=== PATIENT | male | born 1985 | race Caucasian/White ===

== ENCOUNTER 2019-03-13 19:45 | Emergency (ER) | payer SELFPAY ==
[2019-03-13] MEDS ORDERED: HYDROmorphone 1 MG/ML CARPUJECT IVP STA (20:40)
[2019-03-13] MEDS ORDERED: ONDANSETRON 4 MG/2 ML VIAL IVP STA (20:40)
[2019-03-13 20:42] LABS: BASOPHILS % (AUTO) 0.2 %; HGB - HEMOGLOBIN 15.9 g/dL (14.0-18.0); LYMPHOCYTES # (AUTO) 0.6 10^3/uL (1.5-3.5); LYMPHOCYTES % (AUTO) 5.4 %; MEAN CORPUSCULAR HEMOGLOBIN 32.1 pg (27.0-31.0); MEAN CORPUSCULAR HGB CONC 34.4 g/dL (32.0-36.0); MEAN CORPUSCULAR VOLUME 93.1 fL (80.0-94.0); MEAN PLATELET VOLUME 9.2 fL (7.4-11.4); MONOCYTES # (AUTO) 0.2 10^3/uL (0.0-1.0); MONOCYTES % (AUTO) 1.8 %; NEUTROPHILS # (AUTO) 10.4 10^3/uL (1.5-6.6); NEUTROPHILS % (AUTO) 92.3 %; PLT - PLATELET COUNT 240 10^3/uL (130-450); RED BLOOD COUNT 4.96 10^6/uL (4.70-6.10); RED CELL DISTRIBUTION WIDTH 12.1 % (12.0-15.0); WHITE BLOOD COUNT 11.3 x10^3/uL (4.8-10.8)
--- NOTE | 2019-03-13 20:43 | ED Physician Documentation ---
PD HPI ABD PAIN - Stated complaint Stated Complaint: SOA - Chief complaint Chief Complaint: Resp - History obtained from History obtained from: Patient - History of Present Illness Timing - onset: Enter time (0500), Today Timing - duration: Hours Timing - details: Abrupt onset, Still present Quality: Sharp, Pain Location: All over / everywhere, LUQ Improved by: Laying still Worsened by: Moving, Breathing, Position, Palpation Associated symptoms: Nausea, Vomiting Similar symptoms before: Diagnosis (The patient has had spontaneous pneumothorax previously) Recently seen: Not recently seen - Additional information Additional information: 33-year-old male with history of HIV has developed acute vomiting this morning at approximately 5 AM he spent most of the day in the tub and he has persistence of vomiting is now developed acute left upper quadrant abdominal pain worse with inspiration. He has had similar symptoms once with a pneumothorax and he is extremely uncomfortable. He does state that he does use cannabis but not to any excess. He does state that he has had episodes of vomiting for the past several weeks. He is on HIV medicine for the past several months. 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, No motor deficit, No sensory deficit, Normal speech Eye Opening: Spontaneous Motor: Obeys Commands Verbal: Oriented GCS Score: 15 - Psych Psych: Normal mood, Other (flat affect of pain ) Results - Vitals Vitals: Vital Signs - 24 hr 03/13/19 03/13/19 03/13/19 19:51 21:27 23:52 Temperature 36.9 C Heart Rate 81 53 L 87 Respiratory 24 14 14 Rate Blood Pressure 125/98 H 130/70 116/78 O2 Saturation 98 95 95 Oxygen O2 Source Room air - EKG (time done) 2006 Rate: Rate (enter#) (54) Rhythm: NSR Ischemia: Normal ST segments Compare to prior EKG: Old EKG unavailable Computer interpretation: Agree with computer - Labs Labs: Laboratory Tests 03/13/19 03/13/19 20:39 20:39 WBC 11.3 H RBC 4.96 Hgb 15.9 Hct 46.2 MCV 93.1 MCH 32.1 H MCHC 34.4 RDW 12.1 Plt Count 240 MPV 9.2 Neut # (Auto) 10.4 H Lymph # (Auto) 0.6 L [place] # (Auto) 0.2 Eos # (Auto) 0.0 Baso # (Auto) 0.0 Absolute Nucleated RBC 0.00 Nucleated RBC % 0.0 Sodium 136 Potassium 3.9 Chloride 100 L Carbon Dioxide 24 Anion Gap 12.0 BUN 15 Creatinine 1.1 Estimated GFR (MDRD) 77 L Glucose 174 H Calcium 9.7 Total Bilirubin 1.3 H AST 30 ALT 26 Alkaline Phosphatase 51 Total Protein 7.9 Albumin 5.0 Globulin 2.9 Albumin/Globulin Ratio 1.7 Lipase 21 L - Rads (name of study) chest Radiology: Prelim report reviewed (Impression: Normal single view chest.), EMP read indepedently, See rad report PD MEDICAL DECISION MAKING - ED course Complexity details: reviewed results, re-evaluated patient, considered differential, d/w patient ED course: 33-year-old male has had intractable nausea and vomiting over the past 3 days. He comes into the emergency department today with abdominal pain and vomiting. He does state that he was in the bathtub most of the day today and that yes he does smoke cannabis. He states that he does not do this very much and only occasionally. He relates bouts of vomiting for the past 2 months. Patient was unable to go to work over the past 3 days secondary to the vomiting. He has not been previously diagnosed with cannabis hyperemesis. He is on a single medication for HIV. Here in the emergency department he is administered saline and Zofran and Dilaudid with marked improvement in his symptoms. He continues to have nausea and vomiting and he has loud scromicing. With this we were encouraged to provide a dose of Haldol and the patient is given 2 mg of Haldol intravenously with resolution of his nausea. He still has abdominal pain which appears to be in his abdominal wall. He has been retching for 3 days. He requests further medication for the pain and he indicates he has had problems with opiates previously and we have provided a dose of toradal for pain control,. Departure - Departure Disposition: 01 Home, Self Care Clinical Impression: Cannabinoid hyperemesis syndrome Condition: Stable Instructions: ED Nausea Vomiting Follow-Up: [facility] [Provider Group] Prescriptions: Ondansetron Odt [Zofran] 4 mg TL Q6H PRN #10 tablet PRN Reason: Nausea / Vomiting
[2019-03-13 21:02] LABS: ALBUMIN/GLOBULIN RATIO 1.7 (1.0-2.2); BILIRUBIN,TOTAL 1.3 mg/dL (0.2-1.0); CALCIUM 9.7 mg/dL (8.5-10.3); CREATININE 1.1 mg/dL (0.6-1.2); TOTAL PROTEIN 7.9 g/dL (6.7-8.2)
--- NOTE | 2019-03-13 21:25 | XRAY Report ---
Reason: shortness of breath Procedure Date: 03/13/2019 Accession Number: [id number] / [id number] Procedure: XR - Chest 1 View X-Ray CPT Code: 09743 Final Report FULL RESULT: EXAM: CHEST RADIOGRAPHY EXAM DATE: 03/13/2019 09:06 PM. CLINICAL HISTORY: Shortness of breath. COMPARISON: None. TECHNIQUE: 1 view. FINDINGS: Lungs/Pleura: No focal opacities evident. No pleural effusion. No pneumothorax. Mediastinum: Within exam limitations, the cardiomediastinal contour is normal. Other: None. IMPRESSION: Normal single view chest. RADIA
[2019-03-13] MEDS ORDERED: HALOPERIDOL 5 MG/ML VIAL IVP ONE (22:24)
[2019-03-13 23:53] VITALS: BP 116/78
[2019-03-14] MEDS ORDERED: KETOROLAC 30 MG/ML VIAL IVP STA (00:52)
== END 2019-03-14 01:14 | disposition home or self-care (01) ==
LOC: ED 19:45
DX: T40.7X1A Poisoning by cannabis (derivatives), accidental (unintentional), initial encounter (principal); R11.2 Nausea with vomiting, unspecified; F12.188 Cannabis abuse with other cannabis-induced disorder; R10.12 Left upper quadrant pain; I49.1 Atrial premature depolarization; B20 Human immunodeficiency virus [HIV] disease
CPT/HCPCS: 36415; 71045; 80053; 83690; 85025; 93005; 96374; 96375; 99281; 99285; J1170

== ENCOUNTER 2019-03-15 10:33 | Emergency (ER) | payer BC ==
--- NOTE | 2019-03-15 11:45 | ED Physician Documentation ---
PD HPI NVD - Stated complaint Stated Complaint: VOMITING - Chief complaint Chief Complaint: Abd Pain - History obtained from History obtained from: Patient - History of Present Illness Timing - onset: How many days ago (2-3) Timing - duration: Days (2-3) Timing - details: Abrupt onset, Still present, Waxing and waning Associated symptoms: Abdominal pain (left abdomen and epigastric area. Pain and cramping, worse today.), Hematemesis (onset after vomiting several times.). No: Fever, Melena Contributing factors: No: Sick contact, Bad food, Recent antibiotics Improved by: No: Eating, BM Worsened by: Eating, Moving, Palpation Similar symptoms before: No diagnosis Recently seen: Emergency Dept (seen yesterday with similar and Rx with PO/IM meds. IMproved briefly but symptoms back after leaving ER.) Review of Systems Constitutional: denies: Fever, Chills, Myalgias Nose: denies: Rhinorrhea / runny nose, Congestion Throat: denies: Sore throat Cardiac: denies: Chest pain / pressure Respiratory: denies: Cough GI: reports: Abdominal Pain, Nausea, Vomiting, Diarrhea. denies: Abdominal Swelling, Constipation Skin: denies: Rash, Lesions PD PAST MEDICAL HISTORY - Past Medical History Past Medical History: Yes Cardiovascular: None Respiratory: None Neuro: None, TIA Endocrine/Autoimmune: Other - Past Surgical History Past Surgical History: Yes General: Cholecystectomy, Appendectomy, Hiatal hernia repair - Present Medications Home Medications: Ambulatory Orders Medication Instructions Recorded Confirmed Ondansetron Odt [Zofran] 4 mg TL Q6H PRN #10 tablet 03/14/19 Famotidine 20 mg PO DAILY #30 tablet 03/15/19 Hydrocodone/Acetaminophen [Rumsey 1 each PO Q6H PRN #15 tablet 03/15/19 5-325 Tablet] Ondansetron Odt [Zofran] 4 mg TL Q6H PRN #15 tablet 03/15/19 - Allergies Allergies/Adverse Reactions: Allergies Allergy/AdvReac Type Severity Reaction Status Date / Time No Known Drug Allergies Allergy Verified 03/15/19 10:41 - Living Situation Living Arrangement: reports: At home, Other - Social History Does the pt smoke?: No Smoking Status: Never smoker Does the pt drink ETOH?: No Does the pt have substance abuse?: No Substance Use and Type: Marijuana - Immunizations Immunizations are current?: Yes - POLST Patient has POLST: No PD ED PE NORMAL - Vitals Vital signs reviewed: Yes - General General: Alert and oriented X 3, Well developed/nourished, Other (appears anxious and in marked distress.) - HEENT HEENT: Ears normal, Pharynx benign. No: Moist mucous membranes - Neck Neck: Supple, no meningeal sign, No adenopathy - Cardiac Cardiac: No murmur - Respiratory Respiratory: Clear bilaterally - Male Male : Deferred - Rectal Rectal: Deferred - Back Back: No CVA TTP - Derm Derm: Normal color, Warm and dry - Extremities Extremities: Normal ROM s pain - Neuro Neuro: Alert and oriented X 3, No motor deficit, Normal speech Results - Vitals Vitals: Vital Signs - 24 hr 03/15/19 03/15/19 03/15/19 10:41 10:44 12:44 Temperature 37.2 C 37.2 C Heart Rate 86 86 82 Respiratory 17 17 14 Rate Blood Pressure 126/75 126/75 110/60 O2 Saturation 98 98 96 03/15/19 14:25 Temperature Heart Rate 84 Respiratory 18 Rate Blood Pressure 104/68 O2 Saturation 100 Oxygen O2 Source Room air - Labs Labs: Laboratory Tests 03/15/19 03/15/19 12:15 12:15 WBC 9.7 RBC 5.01 Hgb 16.6 Hct 46.5 MCV 92.8 MCH 33.1 H MCHC 35.7 RDW 11.8 L Plt Count 245 MPV 8.9 Neut # (Auto) 7.9 H Lymph # (Auto) 1.1 L [place] # (Auto) 0.6 Eos # (Auto) 0.0 Baso # (Auto) 0.0 Absolute Nucleated RBC 0.00 Nucleated RBC % 0.0 Sodium 132 L Potassium 3.6 Chloride 94 L Carbon Dioxide 29 Anion Gap 9.0 BUN 17 Creatinine 1.1 Estimated GFR (MDRD) 77 L Glucose 118 H Calcium 9.7 Magnesium 2.0 Total Bilirubin 1.2 H AST 27 ALT 26 Alkaline Phosphatase 54 Total Protein 7.7 Albumin 4.9 Globulin 2.8 Albumin/Globulin Ratio 1.8 Lipase 25 - Rads (name of study) abd/pelvis CT Radiology: Prelim report reviewed (no acute process; s/p CCY. Appendix not seen. ), See rad report PD MEDICAL DECISION MAKING - ED course Complexity details: reviewed results (abd/pelvic CT no acute process), considered differential, d/w patient Departure - Departure Disposition: 01 Home, Self Care Clinical Impression: Abdominal pain Qualifiers: Abdominal location: upper abdomen, unspecified Qualified Code(s): R10.10 - Upper abdominal pain, unspecified Vomiting Qualifiers: Vomiting type: unspecified Vomiting Intractability: non-intractable Nausea presence: with nausea Qualified Code(s): R11.2 - Nausea with vomiting, unspecified Condition: Stable Record reviewed to determine appropriate education?: Yes Instructions: ED Nausea Vomiting Prescriptions: Famotidine 20 mg PO DAILY #30 tablet Hydrocodone/Acetaminophen [[place]umsey 5-325 Tablet] 1 each PO Q6H PRN #15 tablet PRN Reason: Pain Ondansetron Odt [Zofran] 4 mg TL Q6H PRN #15 tablet PRN Reason: Nausea / Vomiting Comments: Small frequent fluids to stay well-hydrated. Famotidine acid reducing medicine daily for several weeks. Ondansetron if needed for nausea. Add Tylenol or hydrocodone if needed for pain. Recheck if not improved well over the next couple of days. Return if worsening. Your CT scan did not show any obvious acute local abnormality. Consider likely a stomach irritation such as gastritis. The CT nor your blood test showed any signs of liver or pancreas problems. Forms: Activity restrictions Discharge Date/Time: 03/15/19 14:39
[2019-03-15] MEDS ORDERED: ONDANSETRON 4 MG/2 ML VIAL IVP STA (11:58)
[2019-03-15] MEDS ORDERED: HYDROmorphone 2 MG/ML VIAL IVP STA (11:58)
[2019-03-15] MEDS ORDERED: SODIUM CHLORIDE 0.9% 1,000 ML IV ONE (11:58)
[2019-03-15] MEDS ORDERED: FAMOTIDINE 20 MG/2 ML VIAL IVP STA (11:58)
[2019-03-15] MEDS ORDERED: IOVERSOL 320 100 ML VIAL IVP ONE ×2 (12:08→12:47)
[2019-03-15 12:26] LABS: BASOPHILS % (AUTO) 0.2 %; EOSINOPHILS % (AUTO) 0.1 %; HGB - HEMOGLOBIN 16.6 g/dL (14.0-18.0); LYMPHOCYTES # (AUTO) 1.1 10^3/uL (1.5-3.5); LYMPHOCYTES % (AUTO) 11.5 %; MEAN CORPUSCULAR HEMOGLOBIN 33.1 pg (27.0-31.0); MEAN CORPUSCULAR HGB CONC 35.7 g/dL (32.0-36.0); MEAN CORPUSCULAR VOLUME 92.8 fL (80.0-94.0); MEAN PLATELET VOLUME 8.9 fL (7.4-11.4); MONOCYTES # (AUTO) 0.6 10^3/uL (0.0-1.0); MONOCYTES % (AUTO) 6.2 %; NEUTROPHILS # (AUTO) 7.9 10^3/uL (1.5-6.6); NEUTROPHILS % (AUTO) 81.5 %; PLT - PLATELET COUNT 245 10^3/uL (130-450); RED BLOOD COUNT 5.01 10^6/uL (4.70-6.10); RED CELL DISTRIBUTION WIDTH 11.8 % (12.0-15.0); WHITE BLOOD COUNT 9.7 x10^3/uL (4.8-10.8)
[2019-03-15 12:39] LABS: ALBUMIN 4.9 g/dL (3.2-5.5); ALBUMIN/GLOBULIN RATIO 1.8 (1.0-2.2); BILIRUBIN,TOTAL 1.2 mg/dL (0.2-1.0); CALCIUM 9.7 mg/dL (8.5-10.3); CREATININE 1.1 mg/dL (0.6-1.2); TOTAL PROTEIN 7.7 g/dL (6.7-8.2)
[2019-03-15] MEDS ORDERED: PROMETHAZINE INJ 12.5 MG in SODIUM CHLORIDE 0.9% 50 ML IV STA (12:59)
[2019-03-15] MEDS ORDERED: HYDROmorphone 1 MG/ML CARPUJECT IVP STA (12:59)
--- NOTE | 2019-03-15 13:05 | CT Report ---
Reason: left/diffuse abd pain for few days Procedure Date: 03/15/2019 Accession Number: [id number] / [id number] Procedure: CT - Abdomen/Pelvis W CPT Code: Final Report FULL RESULT: EXAM: CT ABDOMEN AND PELVIS EXAM DATE: 03/15/2019 12:40 PM HISTORY: left/diffuse abd pain for few days COMPARISON: NONE TECHNIQUE: Routine helical CT imaging was performed through the abdomen and pelvis. IV contrast: 100 mL Optiray 320. Enteric contrast: No. Reconstructions: Coronal and sagittal. In accordance with CT protocol optimization, one or more of the following dose reduction techniques were utilized for this exam: automated exposure control, adjustment of mA and/or KV based on patient size, or use of iterative reconstructive technique. FINDINGS: LOWER CHEST: Unremarkable. SOLID ORGANS: Within exam limitations, there is no significant abnormality of the liver, spleen, pancreas, adrenal glands or kidneys. GALLBLADDER/BILE DUCTS: Status post cholecystectomy. No evidence of abnormal biliary distention. PERITONEAL CAVITY/BOWEL: No abnormal bowel dilatation. No free air or free fluid. No evidence of appendicitis. CENTRAL RETROPERITONEUM: Essentially unremarkable aorta. No aneurysm. No retroperitoneal lymphadenopathy. PELVIS: Unremarkable urinary bladder contour. No intravesicular calculi. No inflammation or free fluid. OTHER: Skeleton: No significant skeletal abnormality. Abdominal wall: No significant abnormality. IMPRESSION: Status post cholecystectomy. No acute disease of the abdomen or pelvis. RADIA
[2019-03-15 14:39] VITALS: BP 104/68
== END 2019-03-15 14:39 | disposition home or self-care (01) ==
LOC: ED 10:33
DX: R10.13 Epigastric pain (principal); R11.2 Nausea with vomiting, unspecified; Z90.49 Acquired absence of other specified parts of digestive tract
CPT/HCPCS: 36415; 74177; 80053; 83690; 83735; 85025; 96365; 96375; 96376; 99284; J1170; J7040; Q9967